=== PATIENT | female | born 1960 | race Caucasian/White ===

== ENCOUNTER 2022-05-07 21:18 | Inpatient (IN) | payer SELFPAY ==
[2022-05-07 23:03] LABS: #Basophils 0.1 thou/uL (0.0-0.2); #Eosinphils 0.2 thou/uL (0.0-0.7); #Lymphocytes 1.9 thou/uL (1.20-3.40); #Monocytes 0.2 thou/uL (0.11-0.59); #Neutrophils 4.7 thou/uL (1.40-6.50); %Basophils 1.7 % (0.0-1.0); %Eosinophils 2.6 % (0.0-10.0); %Lymphocytes 27.2 % (21.0-51.0); %Monocytes 2.4 % (0.0-10.0); %Neutrophils 66.1 % (42.0-75.0); ALT (SGPT) 27 U/L (8-55); AST (SGOT) 69 U/L (5-34); Acetaminophen Less than 10.0 mcg/mL (10.0-30.0); Albumin 4.2 g/dL (3.4-4.8); Alcohol 359 mg/dL (Less than 10); Alkaline Phosphatase 149 U/L (40-110); Anion Gap 24 mmol/L (10-20); BUN (Urea Nitrogen) 9 mg/dL (9.8-20.1); Calc. Creatinine Clearance 0 mL/min (70-130); Calcium 8.8 mg/dL (7.8-10.44); Carbon Dioxide 20 mmol/L (23-31); Chloride 98 mmol/L (98-107); Estimated GFR 96; Globulin 3.1 g/dL (2.4-3.5); Glucose 73 mg/dL (80-115); Hemoglobin 14.2 g/dL (12.0-16.0); Mean Corpuscular HGB CONC 32.5 g/dL (32.0-36.0); Mean Corpuscular Hemoglobin 32.8 pg (27.0-31.0); Mean Platelet Volume 8.3 fL (7.4-10.4); Platelet Count 115 10x3/uL (130-400); Platelet Morphology Comment Appears Decreased; Potassium 3.8 mmol/L (3.5-5.1); Protein, Total 7.3 g/dL (5.8-8.1); RBC Distribution Width 12.9 % (11.5-14.5); Red Blood Cell (RBC) Count 4.32 mill/uL (4.20-5.40); Salicylate Less than 8.0 mg/dL (15.0-30.0); Sodium 138 mmol/L (136-145); White Blood Cell (WBC) Count 7.1 10x3/uL (4.8-10.8)
[2022-05-07 23:39] LABS: Bilirubin Negative (Negative); Blood, Urine Trace (Negative); Clarity Turbid (Clear); Glucose, Urine (Dipstick) Normal (Negative); Ketone, Urine 60 mg/dL (Negative); Leukocyte 500 Leu/uL (Negative); Nitrite Negative (Negative); Protein, Urine (Dipstick) 20 mg/dL (Neg-Trace); Specific Gravity, Urine 1.014 (1.002-1.036); Squamous Epithelial 0-3 HPF (0-3); Transitional Epithelial 0-3 HPF (None Seen); Urobilinogen Normal mg/dL (Less than 2); WBC/HPF Greater than 50 HPF (0-3)
[2022-05-07 23:43] LABS: Bacteria/HPF 1+ HPF (None Seen)
[2022-05-08] MEDS ORDERED: cefTRIAXone (ROCEPHIN) 1 GM VIAL ONE (08:05)
[2022-05-08] MEDS ORDERED: Ondansetron PF 4 MG/2 ML Vial ONE ×2 (12:17→14:44)
[2022-05-08] MEDS ORDERED: Lorazepam 2 MG/ML VIAL IM PRN (15:06)
[2022-05-08] MEDS ORDERED: Ondansetron PF 4 MG/2 ML Vial IVP PRN (15:06)
[2022-05-08] MEDS ORDERED: Lorazepam 1 MG TAB PO PRN (15:06)
[2022-05-08] MEDS ORDERED: Ondansetron ODT 4 MG TAB PO PRN ×2 (15:06)
[2022-05-08] MEDS ORDERED: Electrolyte Replacement Protocol 1 EACH FS SCH (15:15)
[2022-05-08] MEDS ORDERED: Electrolyte Replacement Protocol FS PRN (15:30)
[2022-05-08] MEDS ORDERED: Multivit, Therapeutic 1 TAB PO SCH (15:30)
[2022-05-08] MEDS ORDERED: Folic Acid 1 MG TAB PO SCH (15:30)
[2022-05-08] MEDS ORDERED: hydrALAZINE 20 MG/ML VIAL SLOW IVP PRN (15:50)
[2022-05-08] MEDS ORDERED: Dextrose 5 %-0.45 % NaCl 1,000 ML IV SCH (16:00)
[2022-05-08 16:06] LABS: Bilirubin, Direct 0.5 mg/dL (0.1-0.3); Magnesium 1.6 mg/dL (1.6-2.6); Phosphorus 4.1 mg/dL (2.3-4.7)
[2022-05-08] MEDS: Thiamine HCl 200 MG/2 ML VIAL SLOW IVP SCH (16:48)
[2022-05-08] MEDS: Lorazepam 1 MG TAB PO SCH ×2 (16:55→23:51)
[2022-05-08 17:10] VITALS: BMI 18.8
[2022-05-08 18:30] LABS: Amphetamine Not Detected (NotDetected); Barbiturates Screen Not Detected (NotDetected); Benzodiazepine Screen Not Detected (NotDetected); Cocaine Metabolite Screen Not Detected (NotDetected); Methadone Not Detected (NotDetected); Methamphetamine Not Detected (NotDetected); Opiate Screen Not Detected (NotDetected); Oxycodone Screen Not Detected (NotDetected); Phencyclidine (PCP) Not Detected (NotDetected); THC/Cannabinoid Screen Detected (NotDetected); Tricyclic Screen Not Detected (NotDetected)
[2022-05-08] MEDS ORDERED: Magnesium 2 GM/50 ML(in water) 2 GM in Premix Bag 1 BAG IVPB SCH (19:15)
[2022-05-09] MEDS: Lorazepam 1 MG TAB PO SCH (05:38)
[2022-05-09 07:13] LABS: #Basophils 0.1 thou/uL (0.0-0.2); #Eosinphils 0.1 thou/uL (0.0-0.7); #Lymphocytes 1.5 thou/uL (1.20-3.40); #Monocytes 0.4 thou/uL (0.11-0.59); #Neutrophils 3.9 thou/uL (1.40-6.50); %Basophils 1.1 % (0.0-1.0); %Eosinophils 1.8 % (0.0-10.0); %Lymphocytes 24.3 % (21.0-51.0); %Neutrophils 65.9 % (42.0-75.0); Mean Corpuscular HGB CONC 31.5 g/dL (32.0-36.0); Mean Corpuscular Hemoglobin 32.8 pg (27.0-31.0); Mean Platelet Volume 8.9 fL (7.4-10.4); Platelet Count 96 10x3/uL (130-400); RBC Distribution Width 12.6 % (11.5-14.5); Red Blood Cell (RBC) Count 3.67 mill/uL (4.20-5.40)
[2022-05-09 07:39] LABS: ALT (SGPT) 21 U/L (8-55); AST (SGOT) 46 U/L (5-34); Alkaline Phosphatase 109 U/L (40-110); Anion Gap 14 mmol/L (10-20); BUN (Urea Nitrogen) 9 mg/dL (9.8-20.1); Bilirubin, Total 1.6 mg/dL (0.2-1.2); Calc. Creatinine Clearance 58 mL/min (70-130); Calcium 8.1 mg/dL (7.8-10.44); Carbon Dioxide 18 mmol/L (23-31); Chloride 105 mmol/L (98-107); Estimated GFR 96; Globulin 2.7 g/dL (2.4-3.5); Glucose 74 mg/dL (80-115); Protein, Total 5.7 g/dL (5.8-8.1); Sodium 133 mmol/L (136-145)
[2022-05-09] MEDS: Folic Acid 1 MG TAB PO SCH (09:06)
[2022-05-09] MEDS: Multivit, Therapeutic 1 TAB PO SCH (09:06)
[2022-05-09 10:55] LABS: Syphilis Antibody Nonreactive (Nonreactive); Syphilis Antibody Index 0.23 S/CO (<1.00 Non-Reactive)
[2022-05-09] MEDS ORDERED: Lorazepam 1 MG TAB PO PRN (15:06)
[2022-05-09] MEDS: Thiamine HCl 200 MG/2 ML VIAL SLOW IVP SCH (15:27)
[2022-05-09] MEDS ORDERED: Acetaminophen 500 MG TAB PO SCH (15:30)
[2022-05-10 07:44] LABS: #Eosinphils 0.3 thou/uL (0.0-0.7); #Lymphocytes 1.6 thou/uL (1.20-3.40); #Monocytes 0.4 thou/uL (0.11-0.59); #Neutrophils 2.8 thou/uL (1.40-6.50); %Basophils 0.9 % (0.0-1.0); %Eosinophils 5.1 % (0.0-10.0); %Lymphocytes 31.1 % (21.0-51.0); %Monocytes 8.7 % (0.0-10.0); %Neutrophils 54.2 % (42.0-75.0); Hemoglobin 12.1 g/dL (12.0-16.0); Mean Corpuscular HGB CONC 32.6 g/dL (32.0-36.0); Mean Corpuscular Hemoglobin 33.1 pg (27.0-31.0); Mean Platelet Volume 9.3 fL (7.4-10.4); Platelet Count 82 10x3/uL (130-400); RBC Distribution Width 12.3 % (11.5-14.5); Red Blood Cell (RBC) Count 3.66 mill/uL (4.20-5.40); White Blood Cell (WBC) Count 5.1 10x3/uL (4.8-10.8)
[2022-05-10 07:54] LABS: ALT (SGPT) 26 U/L (8-55); AST (SGOT) 54 U/L (5-34); Albumin 3.2 g/dL (3.4-4.8); Alkaline Phosphatase 105 U/L (40-110); Anion Gap 12 mmol/L (10-20); BUN (Urea Nitrogen) 10 mg/dL (9.8-20.1); Calc. Creatinine Clearance 64 mL/min (70-130); Calcium 8.7 mg/dL (7.8-10.44); Carbon Dioxide 22 mmol/L (23-31); Chloride 106 mmol/L (98-107); Estimated GFR 99; Globulin 2.7 g/dL (2.4-3.5); Glucose 87 mg/dL (80-115); Potassium 3.2 mmol/L (3.5-5.1); Protein, Total 5.9 g/dL (5.8-8.1); Sodium 137 mmol/L (136-145)
[2022-05-10] MEDS ORDERED: Potassium Chloride 20 MEQ TAB PO SCH (08:15)
[2022-05-10] MEDS: Folic Acid 1 MG TAB PO SCH (09:50)
[2022-05-10] MEDS: Multivit, Therapeutic 1 TAB PO SCH (09:50)
[2022-05-10] MEDS: Lorazepam 0.5 MG TAB PO SCH ×3 (09:57→21:59)
[2022-05-10] MEDS ORDERED: Lorazepam 1 MG TAB PO PRN (15:06)
[2022-05-10] MEDS: Thiamine HCl 200 MG/2 ML VIAL SLOW IVP SCH (16:50)
[2022-05-10] MEDS ORDERED: Lorazepam 0.5 MG TAB PO SCH (23:59)
[2022-05-11] MEDS: Lorazepam 0.5 MG TAB PO SCH (04:11)
[2022-05-11 06:54] LABS: #Eosinphils 0.4 thou/uL (0.0-0.7); #Lymphocytes 1.9 thou/uL (1.20-3.40); #Monocytes 0.4 thou/uL (0.11-0.59); %Basophils 0.6 % (0.0-1.0); %Eosinophils 7.7 % (0.0-10.0); %Lymphocytes 41.5 % (21.0-51.0); %Monocytes 8.3 % (0.0-10.0); %Neutrophils 41.9 % (42.0-75.0); Hemoglobin 11.5 g/dL (12.0-16.0); Mean Corpuscular HGB CONC 32.9 g/dL (32.0-36.0); Mean Corpuscular Hemoglobin 33.4 pg (27.0-31.0); Mean Platelet Volume 9.2 fL (7.4-10.4); Platelet Count 76 10x3/uL (130-400); RBC Distribution Width 12.1 % (11.5-14.5); Red Blood Cell (RBC) Count 3.45 mill/uL (4.20-5.40); White Blood Cell (WBC) Count 4.7 10x3/uL (4.8-10.8)
[2022-05-11 07:16] LABS: ALT (SGPT) 47 U/L (8-55); AST (SGOT) 109 U/L (5-34); Albumin 3.1 g/dL (3.4-4.8); Alkaline Phosphatase 103 U/L (40-110); Anion Gap 13 mmol/L (10-20); BUN (Urea Nitrogen) 7 mg/dL (9.8-20.1); Bilirubin, Total 0.6 mg/dL (0.2-1.2); Calc. Creatinine Clearance 65 mL/min (70-130); Calcium 9.1 mg/dL (7.8-10.44); Carbon Dioxide 22 mmol/L (23-31); Chloride 105 mmol/L (98-107); Estimated GFR 100; Globulin 2.9 g/dL (2.4-3.5); Glucose 86 mg/dL (80-115); Sodium 136 mmol/L (136-145)
[2022-05-11 08:32] VITALS: BP 92/75; TEMP 98.1
[2022-05-11] MEDS: Multivit, Therapeutic 1 TAB PO SCH (09:28)
[2022-05-11] MEDS: Folic Acid 1 MG TAB PO SCH (09:28)
[2022-05-11] MEDS ORDERED: Lorazepam 0.5 MG TAB PO PRN (15:06)
[2022-05-11] MEDS ORDERED: Thiamine 100 MG TAB PO SCH (16:00)
[2022-05-11] MEDS ORDERED: FLU VACC QS2022-23(6MO UP)/PF 60 MCG/0.5 ML SYRINGE IM ONE (17:30)
== END 2022-05-11 11:19 | disposition home or self-care (01) | DRG 897 ==
LOC: ERS 21:18 → T4-A 05-08 16:21 → OBSVTOIN 05-09 17:26
PROVIDERS: ADMIT Family Medicine; ATTEND Family Medicine
DX: F10.129 Alcohol abuse with intoxication, unspecified (principal); N39.0 Urinary tract infection, site not specified; I10 Essential (primary) hypertension; F31.9 Bipolar disorder, unspecified; E16.2 Hypoglycemia, unspecified; D69.6 Thrombocytopenia, unspecified; F41.9 Anxiety disorder, unspecified; Z90.49 Acquired absence of other specified parts of digestive tract; Z98.890 Other specified postprocedural states; Z88.5 Allergy status to narcotic agent; Z88.8 Allergy status to other drugs, medicaments and biological substances; Z79.899 Other long term (current) drug therapy
CPT/HCPCS: 36415; 36416; 71045; 80053; 80306; 80307; 81003; 81015; 82248; 83735; 84100; 84484; 85025; 86780; 87086; 93005; 96365; 96375; 96376; J0696; J1650; J2405; J3411; J3475; J7042; Q0162